=== PATIENT | male | born 1940 | race Caucasian/White ===

== ENCOUNTER → 2018-04-24 10:18 | Outpatient (CLI) | payer MEDICARE | END | disposition home or self-care (01) | LOC: D.US 10:18 | DX: I12.9 Hypertensive chronic kidney disease with stage 1 through stage 4 chronic kidney disease, or unspecified chronic kidney disease (principal); N18.4 Chronic kidney disease, stage 4 (severe); E11.22 Type 2 diabetes mellitus with diabetic chronic kidney disease; Z68.29 Body mass index [BMI] 29.0-29.9, adult ==

== ENCOUNTER 2019-10-26 07:29 | Outpatient (CLI) | payer MEDICARE ==
[~2019-10-26] VITALS: Ht 162.6 cm; Wt 84.5 kg
[2019-10-26 07:58] LABS: ANION GAP 14.8 mmol/L (8-16); CALCIUM 9.2 mg/dL (8.5-10.1); CARBON DIOXIDE 25.1 mmol/L (21.0-32.0); CREATININE - SERUM 2.4 mg/dL (0.6-1.3); POTASSIUM - SERUM 4.9 mmol/L (3.5-5.1)
[2019-10-26 08:01] LABS: INR 1.06 (0.85-1.17); PROTIME 13.8 SECONDS (11.6-15.0)
[2019-10-26 08:02] LABS: APTT 28.4 SECONDS (22.8-39.4)
[2019-10-26 08:32] LABS: BASOPHILS 0.4 % (0-2); EOSINOPHILS 2.6 % (0-7); HEMATOCRIT 42.1 % (42.0-54.0); HEMOGLOBIN 13.8 g/dL (13.5-17.5); IMMATURE GRANULOCYTES 0.4 % (0-5); LYMPHOCYTES 34.3 % (15-50); MCH 29.6 pg (26.0-34.0); MCHC 32.8 g/dL (31.0-37.0); MCV 90.3 fL (80.0-100.0); MEAN PLATELET VOLUME 10.5 fL (7.4-10.4); MONOCYTES 8.4 % (2-11); NEUTROPHILS 53.9 % (40-80); PLATELET COUNT 238 10x3/uL (130-400); RBC 4.66 10x6/uL (4.20-6.10); RDW 13.6 % (11.5-14.5); WBC 9.7 10x3/uL (4.8-10.8)
[2019-10-26] MEDS ORDERED: KLONOPIN1 MG PO (08:46)
[2019-10-26] MEDS ORDERED: LIPITOR20 MG PO (08:47)
[2019-10-26] MEDS ORDERED: LEVEMIR IN100 UNITS/ SC (08:47)
[2019-10-26] MEDS ORDERED: NORVASC5 MG PO (08:47)
[2019-10-26] MEDS ORDERED: JANUVIA100 MG PO (08:47)
[2019-10-26] MEDS ORDERED: BAYER CHEWABLE81 MG PO (08:48)
[2019-10-26] MEDS ORDERED: METOLAZONE2.5 MG PO (08:48)
[2019-10-26] MEDS ORDERED: LISINOPRIL5 MG PO (08:48)
[2019-10-26] MEDS ORDERED: CLARITIN 10 MG10 MG PO (08:49)
[2019-10-26] MEDS ORDERED: VITAMIN D1000 UNIT PO (08:49)
[2019-10-26] MEDS ORDERED: FISH OIL 1,0001 CA1 PO (08:49)
[2019-10-26 08:59] VITALS: Ht 162.6 cm; Wt 84.5 kg
--- NOTE | 2019-10-26 13:48 | NUR ---
VS STABLE FREQ DONE. PT VOIDED DRESSING CLEAN DRY AND INTACT
== END 2019-10-26 11:30 | disposition home or self-care (01) ==
LOC: D.SP 07:29 → D.CT 10:00 → D.SP 11:30
PROVIDERS: General Practice; ATTEND Internal Medicine Hematology & Oncology
DX: D47.2 Monoclonal gammopathy (principal); I12.9 Hypertensive chronic kidney disease with stage 1 through stage 4 chronic kidney disease, or unspecified chronic kidney disease; E11.22 Type 2 diabetes mellitus with diabetic chronic kidney disease; N18.9 Chronic kidney disease, unspecified; J44.9 Chronic obstructive pulmonary disease, unspecified; E78.2 Mixed hyperlipidemia; I25.2 Old myocardial infarction; E11.40 Type 2 diabetes mellitus with diabetic neuropathy, unspecified; Z86.73 Personal history of transient ischemic attack (TIA), and cerebral infarction without residual deficits; R79.89 Other specified abnormal findings of blood chemistry; Z79.84 Long term (current) use of oral hypoglycemic drugs